=== PATIENT | female | born 1980 | race African-American/Black ===

== ENCOUNTER → 2018-05-15 | Emergency (ER) | payer MEDICARE, MEDICAID ==
[~2018-05-15] VITALS: Ht 172.7 cm; Wt 117.0 kg
[~2018-05-15] MED LIST: KETOROLAC TROMETH 30 MG/ML 1ML VIAL IV ONE; ONDANSETRON HCL 4 MG/2 ML VIAL IV ONE
[2018-05-15 18:33] LABS: Basophils # (auto) 0.1 uL; Eosinophils # (auto) 0.2 uL; Hematocrit 38.7 % (36.0-46.0); Nucleated Red Blood Cells % 0.1 %; Red Blood Cells 4.67 10^6/uL (4.0-5.20)
[2018-05-15 18:34] LABS: Basophils % (auto) 0.9 % (0.0-2.0); Eosinophils % (auto) 2.5 % (0.0-7.0); Hemoglobin 12.3 g/dL (12.2-16.2); Lymphocytes # (auto) 1.9 uL; Lymphocytes % (auto) 23.3 % (10.0-50.0); Mean Corpuscular Hemoglobin 26.3 pg (28.0-32.0); Mean Corpuscular Hgb Conc. 31.7 g/dL (32.0-36.0); Mean Corpuscular Volume 82.9 fL (80.0-100.0); Monocytes # (auto) 0.6 uL; Monocytes % (auto) 6.9 % (0.0-12.0); Neutrophils # (auto) 5.4 uL; Neutrophils % (auto) 66.4 % (37.0-80.0); Platelet Count (auto) 399 10^3/uL (140-450); Red Cell Distribution Width 20.4 % (11.8-14.3); White Blood Cell 8.1 10^3/uL (4.4-10.8)
[2018-05-15 18:49] LABS: Albumin 3.3 g/dL (3.4-5.0); BUN/Creatinine Ratio 11.2; Calcium 8.8 mg/dL (8.5-10.1); Potassium 4.3 mmol/L (3.5-5.1)
[2018-05-15 18:51] LABS: Bilirubin, Total 0.4 mg/dL (0.2-1.0); Total Protein 7.3 g/dL (6.4-8.2)
[2018-05-15 18:55] VITALS: BP 128/90
== END | disposition home or self-care (01) ==
LOC: ER 16:53
DX: N64.4 Mastodynia (principal); E66.9 Obesity, unspecified; Z68.39 Body mass index [BMI] 39.0-39.9, adult; Z88.0 Allergy status to penicillin; Z98.82 Breast implant status
CPT/HCPCS: 36415; 76642; 80053; 85025

== ENCOUNTER 2019-08-02 00:24 | Emergency (ER) | payer MEDICARE, MEDICAID ==
[~2019-08-02] VITALS: Ht 172.7 cm; Wt 113.4 kg
[2019-08-02 01:10] VITALS: BP 127/92
[2019-08-02] MEDS ORDERED: PROPARACAINE HCL 0.5% OPTH(EYE) SOL 15ML OP PRN (01:30)
[2019-08-02] MEDS ORDERED: TETRACAINE HCL 0.5% OPTH(EYE) SOLN 4ML EACHEYE ONE ×2 (01:45→03:15)
[2019-08-02] MEDS ORDERED: HYDROcodone-ACET 10/325MG TAB PO ONE (04:45)
== END 2019-08-02 06:00 | disposition home or self-care (01) ==
LOC: EDBD 00:24 → ER 00:28
DX: H10.33 Unspecified acute conjunctivitis, bilateral (principal); F17.210 Nicotine dependence, cigarettes, uncomplicated; F12.10 Cannabis abuse, uncomplicated; Z88.0 Allergy status to penicillin